=== PATIENT | female | born 1935 | race Hispanic/Latino ===

== ENCOUNTER 2018-06-18 12:26 | Emergency (ER) | payer MEDICARE ==
[~2018-06-18 12:26] MED LIST: ATOR10TA69 PO; GLIP1TAB6 PO; LISI-613 PO; METO50TA18 PO; NIFE30TA91 PO; SITA100T12 PO
[2018-06-18] MEDS ORDERED: ACETAMINOPHEN EXTRA STRENGTH 500 MG TABLET ONE (13:03)
== END 2018-06-18 13:38 | disposition home or self-care (01) ==
LOC: EDH 12:26
DX: S10.86XA Insect bite of other specified part of neck, initial encounter (principal); I10 Essential (primary) hypertension; E78.5 Hyperlipidemia, unspecified; E11.9 Type 2 diabetes mellitus without complications; I25.2 Old myocardial infarction; Z88.0 Allergy status to penicillin; W57.XXXA Bitten or stung by nonvenomous insect and other nonvenomous arthropods, initial encounter; Y93.89 Activity, other specified; Y92.89 Other specified places as the place of occurrence of the external cause; Y99.8 Other external cause status
CPT/HCPCS: 99282